=== PATIENT | female | born 1975 | race Caucasian/White ===

== ENCOUNTER 2017-08-16 08:46 | Emergency (ER) | payer BC, MEDICAID ==
[2017-08-16 10:48] LABS: ABSOLUTE EOSINOPHILS # (AUTO) 0.1 10^3/uL (0.0-0.6); ABSOLUTE LYMPHOCYTES (AUTO) 2.1 10^3/uL (0.5-4.7); ABSOLUTE MONOCYTES (AUTO) 0.6 10^3/uL (0.1-1.4); ABSOLUTE NEUT (AUTO) 9.5 10^3/uL (1.7-8.2); BASOPHILS % (AUTO) 0.2 % (0-2); EOSINOPHILS % (AUTO) 0.8 % (0-6); HEMATOCRIT 32.2 % (36.0-47.0); LYMPHOCYTES % (AUTO) 17.3 % (13-45); MEAN CORPUSCULAR HEMOGLOBIN 32.4 pg (27.0-33.4); MEAN CORPUSCULAR VOLUME 95 fl (80-97); PLATELET COUNT 350 10^3/uL (150-450); RED BLOOD COUNT 3.38 10^6/uL (3.72-5.28); RED CELL DISTRIBUTION WIDTH 14.4 % (11.5-14.0); SEGMENTED NEUTROPHILS % (AUTO) 76.7 % (42-78); TOTAL CELLS COUNTED % (AUTO) 100 %; WHITE BLOOD COUNT 12.4 10^3/uL (4.0-10.5)
[2017-08-16 10:56] LABS: APPEARANCE,URINE SLIGHTLY-CLOUDY; BILIRUBIN,URINE NEGATIVE (NEGATIVE); CALCIUM OXALATE CRYSTALS,URINE MANY /HPF; COLOR,URINE YELLOW; GLUCOSE, URINE NEGATIVE (NEGATIVE); KETONES,URINE TRACE mg/dL (NEGATIVE); LEUKOCYTE ESTERASE,URINE NEGATIVE (NEGATIVE); NITRITE,URINE NEGATIVE (NEGATIVE); PROTEIN,URINE NEGATIVE (NEGATIVE); URINE SPECIFIC GRAVITY 1.024; UROBILINOGEN,URINE NEGATIVE mg/dL (<2.0)
[2017-08-16 11:10] LABS: ALANINE AMINOTRANSFERASE 22 U/L (9-52); ALBUMIN 3.6 g/dL (3.5-5.0); ALKALINE PHOSPHATASE 50 U/L (38-126); ANION GAP 10 (5-19); ASPARTATE AMINO TRANSFERASE 18 U/L (14-36); BILIRUBIN,DIRECT 0.2 mg/dL (0.0-0.4); BILIRUBIN,TOTAL 0.2 mg/dL (0.2-1.3); BLOOD UREA NITROGEN 9 mg/dL (7-20); CALCIUM 9.8 mg/dL (8.4-10.2); CARBON DIOXIDE 26 mmol/L (22-30); CHLORIDE 103 mmol/L (98-107); CREATINE KINASE 50 U/L (30-135); GLUCOSE 104 mg/dL (75-110); POTASSIUM 4.4 mmol/L (3.6-5.0); SODIUM 139.2 mmol/L (137-145); TOTAL PROTEIN 6.2 g/dL (6.3-8.2)
[2017-08-16] MEDS ORDERED: NORMAL SALINE 1000 ML 1,000 ML IV ONE (11:17)
[2017-08-16 11:21] LABS: CREATINE KINASE MB 0.41 ng/mL (<4.55)
[2017-08-16 11:23] LABS: TROPONIN I < 0.012 ng/mL
--- NOTE | 2017-08-16 13:05 | RADIOLOGY REPORT (SQ) ---
EXAM DESCRIPTION: CTA CHEST COMPLETED DATE/TIME: 08/16/2017 12:36 pm REASON FOR STUDY: sob/left arm pain, cp, COMPARISON: None. TECHNIQUE: CT scan of the chest performed using helical scanning technique with dynamic intravenous contrast injection. Images reviewed with lung, soft tissue and bone windows. Reconstructed coronal and sagittal MPR images reviewed. Additional 3 dimensional post-processing performed to develop Maximal Intensity Projection images (ME P). All images stored on PACS. All CT scanners at this facility use dose modulation, iterative reconstruction, and/or weight based d osing when appropriate to reduce radiation dose to as low as reasonably achievable (ALARA). [facility]: Dose Right [facility]: CareDose [facility]: Dose Right [facility]: Teradose 4D [facility]: [employer] CONTRAST TYPE AND DOSE: contrast/concentration: Isovue 370.00 mg/ml; Total Contrast Delivered: 157.0 ml; Total Saline Delivered: 136.9 ml Patient had to be reinjected due to IV malfunction. RENAL FUNCTION: GFR > 60. RADIATION DOSE: CT Rad equipment meets quality standard of care and radiation dose reduction techniq ues were employed. CTDIvol: 24.8 - 25.5 mGy. DLP: 880 mGy-cm. . LIMITATIONS: Timing of contrast. FINDINGS: LUNGS AND PLEURA: No masses, infiltrates, pneumothorax. No pleural effusions, calcificati ons. AORTA AND GREAT VESSELS: No aneurysm. No dissection. HEART: No pericardial effusion. No significant coronary artery calcifications. PULMONARY ARTERIES: No emboli visualized in the main pulmonary arteries or the segmental branches. HILAR AND MEDIASTINAL STRUCTURES: No identified masses or abnormal nodes. HARDWARE: None in the chest. UPPER ABDOMEN: No significant findings. Limited exam. THYROID AND OTHER SOFT TISSUES: No masses. No adenopathy. BONES: No acute or significant finding. 3D MIPS: Confirm above findings. OTHER: No other significant finding. IMPRESSION: NORMAL CTA OF THE CHEST. NO PULMONARY EMBOLI. COMMENT: Quality ID # [id number]: Final reports with documentation of one or more dose reduction techniques (e.g., Automated exposure control, adjustment of the mA and/or kV according to patient size, use of iterative reconstruction technique) TECHNICAL DOCUMENTATION: JOB ID: [id number] [employer]- All Rights Reserved Reading location - IP/workstation name: [facility]
--- NOTE | 2017-08-16 13:18 | ER Document Report ---
ED Extremity Problem, Upper - General Chief Complaint: Arm Problem Stated Complaint: ARM PAIN Time Seen by Provider: 08/16/17 09:47 Mode of Arrival: Ambulatory Information source: Patient Notes: Patient a 41-year-old female who is approximately 23 weeks with her fourth child and presents to the ER today for left arm pain that started last night in the middle of her sleep. Patient does state that she has carpal tunnel and that the pain is similar but that it has never traveled all the way up to the shoulder which is the case at this time. Patient denies any chest pain. Patient admits to shortness of breath that also began this morning with exertion. Patient states that she has not been having shortness of breath at all and that this is a new symptom. Patient also admits to nausea and vomiting yesterday and nausea this morning, stating that she has not been having that for many months either. She denies any history of blood clots, recent travel. She denies any cardiac history. TRAVEL OUTSIDE OF THE [place] IN LAST 30 DAYS: No - Related Data Allergies/Adverse Reactions: No Known Allergies Allergy (Verified 08/16/17 08:46) Past Medical History - General Information source: Patient - Social History Smoking Status: Never Smoker Chew tobacco use (# tins/day): No Frequency of alcohol use: None Drug Abuse: None Family History: Reviewed & Not Pertinent Patient has suicidal ideation: No Patient has homicidal ideation: No - Past Medical History Cardiac Medical History: Reports: Hx Hypertension Renal/ Medical History: Denies: Hx Peritoneal Dialysis Review of Systems - Review of Systems Constitutional: No symptoms reported EENT: No symptoms reported Cardiovascular: See HPI Respiratory: See HPI Gastrointestinal: See HPI Genitourinary: No symptoms reported Female Genitourinary: See HPI Musculoskeletal: No symptoms reported Skin: No symptoms reported Hematologic/Lymphatic: No symptoms reported Neurological/Psychological: No symptoms reported Physical Exam - Vital signs Vitals: Temp Pulse Resp BP Pulse Ox 97.8 F 83 16 130/66 H 97 08/16/17 08:50 08/16/17 08:50 08/16/17 08:50 08/16/17 08:50 08/16/17 08:50 - Notes Notes: PHYSICAL EXAMINATION: GENERAL: Anxious appearing, but in no acute distress. HEAD: Atraumatic, normocephalic. EYES: Pupils equal round and reactive to light, extraocular movements intact, sclera anicteric, conjunctiva are normal. ENT: ear canals without erythema or foreign body, TMs pearly ferrer with good bony landmarks, nares patent, oropharynx clear without exudates. Moist mucous membranes. NECK: Normal range of motion, supple without lymphadenopathy LUNGS: CTAB and equal. No wheezes rales or rhonchi. HEART: Regular rate and rhythm without murmurs ABDOMEN: Soft, no tenderness. No guarding, no rebound BACK: no vertebral tenderness, normal ROM GI/: no CVA tenderness EXTREMITIES: Normal range of motion, no pitting edema. No cyanosis. NEUROLOGICAL: Cranial nerves grossly intact. Normal sensory/motor exams. PSYCH: Normal mood, normal affect. SKIN: Warm, Dry, normal turgor, no rashes or lesions noted Course - Re-evaluation Re-evalutation: 08/16/17 19:00 Lab work is unremarkable today including normal cardiac enzymes, EKG reveals a normal sinus rhythm without evidence of ischemia or abnormality, CTA was performed due to patient's complaint of acute shortness of breath and was negative for any pulmonary emboli or other abnormality. 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 Vitals have been all within normal limits and patient stable for discharge. - Vital Signs Vital signs: Temp Pulse Resp BP Pulse Ox 97.9 F 77 16 112/65 98 08/16/17 13:47 08/16/17 13:47 08/16/17 13:47 08/16/17 13:47 08/16/17 13:47 - Laboratory Result Diagrams: 08/16/17 10:29 08/16/17 10:29 Laboratory results interpreted by me: 08/16/17 08/16/17 08/16/17 10:29 10:29 10:29 WBC 12.4 H RBC 3.38 L Hgb 11.0 L Hct 32.2 L RDW 14.4 H Absolute Neutrophils 9.5 H Total Protein 6.2 L Urine Ketones TRACE H Urine Ascorbic Acid 40 H Discharge - Discharge Clinical Impression: related nausea and vomiting, antepartum, SOB (shortness of breath), Left arm pain Condition: Stable Disposition: HOME, SELF-CARE Additional Instructions: Return immediately for any new or worsening symptoms. Follow up with primary care provider, call tomorrow to make followup appointment. Prescriptions: Metoclopramide HCl [Reglan 10 mg Tablet] 1 tab PO Q8 PRN #25 tablet PRN Reason:
[2017-08-16] MEDS ORDERED: METOCLOPRAMIDE HCL INJ/PF 10 MG/2 ML SDV IV ONE (13:19)
[2017-08-16 13:51] VITALS: BP 112/65
--- NOTE | 2017-08-16 17:59 | EKG REPORT ---
SEVERITY:- NORMAL ECG - SINUS RHYTHM : Confirmed by: Yoshi Ivey MD 16-Aug-2017 17:59:16
== END 2017-08-16 13:47 | disposition home or self-care (01) ==
LOC: ER 08:46
DX: O21.9 Vomiting of pregnancy, unspecified (principal); O26.892 Other specified pregnancy related conditions, second trimester; M79.602 Pain in left arm; R06.02 Shortness of breath; Z3A.23 23 weeks gestation of pregnancy
CPT/HCPCS: 93005; 99284; 96360; 36415; 82553; 82550; 85025; 80053; 81001; 84484; 71275; 93010; J7030

== ENCOUNTER → 2017-12-11 | Outpatient (CLI) | payer BC, MEDICAID ==
[~2017-12-11] MED LIST: LIDOCAINE 1% INJ-PF (10 MG/ML) 30 ML SDV ONE; MISOPROSTOL 0.2 MG TABLET ONE; OXYTOCIN/NORMAL SALINE 20 UNIT/1,000 ML RTUINJ IV PRN; OXYTOCIN/NORMAL SALINE 20 UNIT/1,000 ML RTUINJ ONE; RINGERS SOLUTION,LACTATED 1,000 ML IV PRN; RINGERS SOLUTION,LACTATED 300 ML IV ONE
[2017-12-11 08:01] LABS: ABSOLUTE EOSINOPHILS # (AUTO) 0.1 10^3/uL (0.0-0.6); ABSOLUTE LYMPHOCYTES (AUTO) 1.9 10^3/uL (0.5-4.7); ABSOLUTE MONOCYTES (AUTO) 0.6 10^3/uL (0.1-1.4); ABSOLUTE NEUT (AUTO) 5.2 10^3/uL (1.7-8.2); BASOPHILS % (AUTO) 0.3 % (0-2); EOSINOPHILS % (AUTO) 1.4 % (0-6); HEMOGLOBIN 12.2 g/dL (12.0-15.5); LYMPHOCYTES % (AUTO) 24.5 % (13-45); MEAN CORPUSCULAR HGB CONC 34.9 g/dL (32.0-36.0); MEAN CORPUSCULAR VOLUME 95 fl (80-97); MONOCYTES % (AUTO) 7.8 % (3-13); PLATELET COUNT 310 10^3/uL (150-450); RED CELL DISTRIBUTION WIDTH 14.4 % (11.5-14.0); TOTAL CELLS COUNTED % (AUTO) 100 %; WHITE BLOOD COUNT 7.9 10^3/uL (4.0-10.5)
[2017-12-11 08:03] LABS: APPEARANCE,URINE CLEAR; BILIRUBIN,URINE NEGATIVE (NEGATIVE); COLOR,URINE YELLOW; GLUCOSE, URINE NEGATIVE (NEGATIVE); KETONES,URINE NEGATIVE (NEGATIVE); LEUKOCYTE ESTERASE,URINE NEGATIVE (NEGATIVE); NITRITE,URINE NEGATIVE (NEGATIVE); PROTEIN,URINE NEGATIVE (NEGATIVE); URINE SPECIFIC GRAVITY 1.019; UROBILINOGEN,URINE NEGATIVE mg/dL (<2.0)
[2017-12-11 08:04] LABS: ALANINE AMINOTRANSFERASE 29 U/L (9-52); ALBUMIN 3.6 g/dL (3.5-5.0); ALKALINE PHOSPHATASE 79 U/L (38-126); ANION GAP 11 (5-19); ASPARTATE AMINO TRANSFERASE 32 U/L (14-36); BILIRUBIN,DIRECT 0.2 mg/dL (0.0-0.4); BILIRUBIN,TOTAL 0.5 mg/dL (0.2-1.3); BLOOD UREA NITROGEN 10 mg/dL (7-20); CARBON DIOXIDE 23 mmol/L (22-30); CHLORIDE 107 mmol/L (98-107); GLUCOSE 94 mg/dL (75-110); POTASSIUM 4.1 mmol/L (3.6-5.0); TOTAL PROTEIN 6.5 g/dL (6.3-8.2)
[2017-12-11 08:16] LABS: URINE AMPHETAMINES SCREEN NEGATIVE; URINE BARBITURATES SCREEN NEGATIVE; URINE BENZODIAZEPINES SCREEN NEGATIVE; URINE COCAINE SCREEN NEGATIVE; URINE MARIJUANA (THC) SCREEN NEGATIVE; URINE METHADONE SCREEN NEGATIVE; URINE PHENCYCLIDINE SCREEN NEGATIVE
[2017-12-11 08:24] LABS: UR PRO/CREAT RATIO RESULT 0.1 mg/mg (0.0-0.2); URINE CREATININE 171.6 mg/dL (15-278); URINE PROTEIN 9.1 mg/dL (<12)
--- NOTE | 2017-12-11 13:52 | Non Stress Test Report ---
Non Stress Test Datetime Report Generated by CPN: 12/11/2017 13:51 DEMOGRAPHIC EGA NST: 39.4 INDICATION Indication for Study: Other Indication for Study (NST) Other: scheduled induction of labor VITAL SIGNS Temperature - NST: 99.3 Pulse - NST: 90 RESP - NST: 18 NBPSYS NST: 124 NBPDIA NST: 77 MONITORING Monitor Explained: Monitor Explained; Test Explained; Patient Verbalized Understanding Time on Monitor: 12/11/2017 12:44 Time off Monitor: 12/11/2017 13:04 NST Duration: 20 NST INTERVENTIONS NST Interventions: PO Hydration Physician Notified NST: A. Scott, CNM BABY A: [id number] BABY A Movement : Present Contraction Frequency : 1.5-3 FHR Baseline : 135 Accelerations : 15X15 Decelerations : None Variability : Moderate 6-25bpm NST Review: Meets Criteria for Reactive NST NST Review and Verified By : JASON Melton Results: Reactive NST REPORT Report Trigger: Send Report
--- NOTE | 2017-12-11 14:02 | PDOC PROGRESS REPORT ---
Subjective Progress Note for:: 12/11/17 Reason For Visit: INDUCTION OF LABOR Physical Exam - Physical Exam Vital Signs: Intake & Output 12/10/17 12/11/17 12/12/17 06:59 06:59 06:59 Weight 114.4 kg General appearance: PRESENT: no acute distress - cx Psychiatric exam: PRESENT: normal mood - Gynecological Exam Labia: normal Urethra: normal Introitus: normal Perineum: normal Vagina: normal - Obstetrical Exam Station: -3 Tender: No Result Laboratory Results: 12/11/17 07:23 12/11/17 07:23 12/11/17 12/11/17 12/11/17 07:10 07:23 07:23 WBC 7.9 RBC 3.70 L Hgb 12.2 Hct 35.0 L MCV 95 MCH 33.0 MCHC 34.9 RDW 14.4 H Plt Count 310 Seg Neutrophils % 66.0 Lymphocytes % 24.5 Monocytes % 7.8 Eosinophils % 1.4 Basophils % 0.3 Absolute Neutrophils 5.2 Absolute Lymphocytes 1.9 Absolute Monocytes 0.6 Absolute Eosinophils 0.1 Absolute Basophils 0.0 Sodium 141.0 Potassium 4.1 Chloride 107 Carbon Dioxide 23 Anion Gap 11 BUN 10 Creatinine 0.65 Est GFR ( Amer) > 60 Est GFR (Non-Af Amer) > 60 Glucose 94 Uric Acid 6.0 Calcium 9.0 Total Bilirubin 0.5 AST 32 ALT 29 Alkaline Phosphatase 79 Total Protein 6.5 Albumin 3.6 Urine Color YELLOW Urine Appearance CLEAR Urine pH 6.0 Ur Specific Bradley 1.019 Urine Protein NEGATIVE Urine Glucose (UA) NEGATIVE Urine Ketones NEGATIVE Urine Blood NEGATIVE Urine Nitrite NEGATIVE Ur Leukocyte Esterase NEGATIVE Urine WBC (Auto) 1 Blood Type Antibody Screen 12/11/17 07:23 WBC RBC Hgb Hct MCV MCH MCHC RDW Plt Count Seg Neutrophils % Lymphocytes % Monocytes % Eosinophils % Basophils % Absolute Neutrophils Absolute Lymphocytes Absolute Monocytes Absolute Eosinophils Absolute Basophils Sodium Potassium Chloride Carbon Dioxide Anion Gap BUN Creatinine Est GFR ( Amer) Est GFR (Non-Af Amer) Glucose Uric Acid Calcium Total Bilirubin AST ALT Alkaline Phosphatase Total Protein Albumin Urine Color Urine Appearance Urine pH Ur Specific Bradley Urine Protein Urine Glucose (UA) Urine Ketones Urine Blood Urine Nitrite Ur Leukocyte Esterase Urine WBC (Auto) Blood Type A NEGATIVE Antibody Screen NEGATIVE Assessment & Plan - Diagnosis (1) Gestational diabetes Qualifiers: Gestational diabetes mellitus control: oral hypoglycemic-controlled Is this a current diagnosis for this admission?: Yes - Plan Summary Plan Summary: after discussion and chart review with dr childs, pt given option of going home and follow up on thursday in office. pt opts for going home,
== END ==
LOC: UNDOADMIN 06:46 → LR 06:46 → LC 06:48 → UNDODISIN 13:35 → EDSTATUS 12-18 16:14
PROVIDERS: ATTEND Student in an Organized Health Care Education/Training Program
PROC: 4A1HXCZ Monitoring of Products of Conception, Cardiac Rate, External Approach (ICD-10-PCS; principal; 2017-12-11)
DX: O24.913 Unspecified diabetes mellitus in pregnancy, third trimester (principal); Z3A.39 39 weeks gestation of pregnancy; Z79.899 Other long term (current) drug therapy
CPT/HCPCS: 59025; 86900; 86901; 36415; 86850; 83615; 84156; 84550; 82570; 85025; 86592; 80053; 81001; 80307; J3490; J2590

== ENCOUNTER 2017-12-25 15:18 | Inpatient (IN) | payer BC, MEDICAID ==
[2017-12-25] MEDS ORDERED: DINOPROSTONE 10 MG VAGINAL INSERT.SR PV PRN (15:35)
[2017-12-25] MEDS ORDERED: OXYTOCIN/NORMAL SALINE 20 UNIT/1,000 ML RTUINJ IV PRN (15:35)
[2017-12-25] MEDS ORDERED: RINGERS SOLUTION,LACTATED 300 ML IV ONE (15:35)
[2017-12-25] MEDS ORDERED: RINGERS SOLUTION,LACTATED 1,000 ML IV PRN ×2 (15:35)
[2017-12-25 16:45] LABS: HEMATOCRIT 34.6 % (36.0-47.0); HEMOGLOBIN 11.9 g/dL (12.0-15.5); MEAN CORPUSCULAR HEMOGLOBIN 32.4 pg (27.0-33.4); MEAN CORPUSCULAR HGB CONC 34.3 g/dL (32.0-36.0); MEAN CORPUSCULAR VOLUME 95 fl (80-97); PLATELET COUNT 291 10^3/uL (150-450); RED BLOOD COUNT 3.66 10^6/uL (3.72-5.28); RED CELL DISTRIBUTION WIDTH 14.5 % (11.5-14.0); WHITE BLOOD COUNT 9.5 10^3/uL (4.0-10.5)
[2017-12-25] MEDS ORDERED: OXYTOCIN/NORMAL SALINE 20 UNIT/1,000 ML RTUINJ ONE (17:09)
[2017-12-25 17:30] LABS: URINE AMPHETAMINES SCREEN NEGATIVE; URINE BARBITURATES SCREEN NEGATIVE; URINE BENZODIAZEPINES SCREEN NEGATIVE; URINE COCAINE SCREEN NEGATIVE; URINE MARIJUANA (THC) SCREEN NEGATIVE; URINE METHADONE SCREEN NEGATIVE; URINE PHENCYCLIDINE SCREEN NEGATIVE
--- NOTE | 2017-12-25 18:35 | Admission Physical ---
Datetime Report Generated by CPN: 12/25/2017 18:34 CURRENT ADMISSION Hx Assessment: The History has been Reviewed and is Current Chief Complaint: Scheduled Induction of Labor Indication for Induction: Postterm Admit Impression : Postterm, Intrauterine Admit Plan: Admit to Unit; Initiate Labor Induction Protocol ALLERGIES Medication Allergies: No Medication Allergies: No Known Allergies (12/25/2017) Latex: No Latex Allergies Food Allergies: none Environmental Allergies: none OBSTETRICAL HISTORY EDC: 12/14/2017 00:00 : 4 Para: 3 Term: 3 : 0 SAB: 0 IAB: 0 Ectopic: 0 Livin Cesareans: 0 VBACs: 0 Multiple Births: 0 Gestational Diabetes: Yes Rh Sensitization: No Incompetent Cervix: No SHRUTHI: No Infertility: No ART Treatment: No Uterine Anomaly: No IUGR: No Hx Previous C/S: No Macrosomia: No Hx Loss/Stillborn: No PIH: Yes Hx : No Placenta Previa/Abruption: No Depression/PP Depression: No PTL/PROM: No Post Hemorrhage: No Current Procedures: Ultrasound; NST Obstetrical History Comments: G1 - 1993 42 wks 8 lbs 9 oz Female G2 - 1999 40 wks 6 lbs 3 oz Female PIH G3 - 2002 40+ wks 8 lbs 9 oz Female G4 - current, GDM on glyburide, AMA, HTN SEE RECORDS Alcohol: No Marijuana : No Cocaine: No Other Illicit Drugs: No Cigarettes: Never Smoker. 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 Surgery: No Heart Disease: No Hosp/Surgery: Yes Autoimmune Disorder: No Anesthetic Complications: No Kidney Disease: No Abnormal Pap Smear: No Neuro/Epilepsy: No Psychiatric Disorders: No Other Medical Diseases: No Hepatitis/Liver Disease: No Significant Family History: No Varicosities/Phlebitis: No Trauma/Violence : No Thyroid Dysfunction: No Medical History Comments: Druze, HTN, Obesity, Shingles (2017), Anterior Fibroid 6.8 cm, Rectocele, GDM, Anxiety, panic attack INFECTIOUS HISTORY Gonorrhea: No Genital Herpes: No Chlamydia: No Tuberculosis: No Syphilis: No Hepatitis: No HIV/AIDS Exposure: No Rash or Viral Illness: No HPV: No PHYSICAL EXAM General: Normal Neurologic: Normal Heart: Normal Lungs: Normal Abdomen: Normal Pelvic Type: Adequate Physical Exam Comments: pelvis proven to 8lbs 9oz last delivery 2003 Vital Signs: Reviewed Details Vital Signs: mild range bps-normal VAGINAL EXAM Dilatation: 2-3 Effacement: long Station: -3 Contraction Comments: irreg on admission MEMBRANES Membranes: Intact FETUS A EGA: 41.4 Monitoring: External US FHR- Baseline: 140 Variability: Moderate 6-25bpm Accelerations: 15X15 FHR Category: Category I Presentation: Vertex Admit Comment: 42yo into L_D for IOL at 41w4d. Pt. is A neg, rubella immune, GBS neg. complicated by obesity, GDM-A2 on glyburide and CHTN on labetalol. Will start pitocin induction at this time. Pt. is a Jehova's Witness and declines blood products if needed during this hospitalization. Understands this is a life saving procedure but still declines. PLANS FOR LABOR AND DELIVERY Labor and Delivery: None Pain Management: Medications Feeding Preference: Breast Benefit of Breast Feed Discussed: Yes Circumcision: N/A INFORMED CONSENT Assignment: Ivy Santiago MD Signature: with User ID: [email or web address] : with User ID: [email or web address]
[2017-12-26] MEDS ORDERED: LIDOCAINE 1% INJ-PF (10 MG/ML) 30 ML SDV ONE (00:54)
[2017-12-26] MEDS ORDERED: OXYTOCIN 10 UNIT/ML VIAL ONE (00:54)
[2017-12-26] MEDS ORDERED: MISOPROSTOL 0.2 MG TABLET ONE (00:54)
[2017-12-26] MEDS ORDERED: OXYTOCIN/NORMAL SALINE 20 UNIT/1,000 ML RTUINJ ONE (00:55)
[2017-12-26] MEDS ORDERED: FENTANYL CITRATE INJ/PF 100 MCG/2 ML AMPUL ONE ×2 (02:00→04:32)
[2017-12-26] MEDS ORDERED: FENTANYL CITRATE INJ/PF 100 MCG/2 ML AMPUL IV ONE (02:20)
[2017-12-26] MEDS ORDERED: NALOXONE HCL INJ/PF 0.4 MG/1 ML SDV ONE (02:33)
[2017-12-26] MEDS ORDERED: ONDANSETRON HCL INJ/PF 4 MG/2 ML SDV ONE (04:04)
[2017-12-26] MEDS ORDERED: ONDANSETRON HCL INJ/PF 4 MG/2 ML SDV IV ONE (04:10)
[2017-12-26] MEDS ORDERED: DIPHENHYDRAMINE HCL 50 MG/ML VIAL ONE (04:56)
[2017-12-26] MEDS ORDERED: ACETAMINOPHEN WITH CODEINE #3 TABLET ONE (05:46)
[2017-12-26] MEDS ORDERED: IBUPROFEN 800 MG TABLET ONE (05:46)
[2017-12-26] MEDS ORDERED: PROMETHAZINE HCL 25 MG SUPP.RECT PR PRN (05:50)
[2017-12-26] MEDS ORDERED: MEASLES,MUMPS&RUBELLA VACC/PF 0.5 ML VIAL SUBCUT PRN (05:50)
[2017-12-26] MEDS ORDERED: DIPH/PERTUSS(ACELL)/TETANUS VAC/PF 0.5 ML SYR (>=10YO) IM PRN (05:50)
[2017-12-26] MEDS ORDERED: BENZOCAINE/MENTHOL AEROSOL SPRAY 56 ML TOP PRN (05:50)
[2017-12-26] MEDS ORDERED: MAGNESIUM HYDROXIDE SUSP 30 ML UDCUP PO PRN (05:50)
[2017-12-26] MEDS ORDERED: OXYTOCIN/NORMAL SALINE 20 UNIT/1,000 ML RTUINJ IV PRN (05:50)
[2017-12-26] MEDS ORDERED: ACETAMINOPHEN WITH CODEINE #3 TABLET PO PRN ×2 (05:50)
[2017-12-26] MEDS ORDERED: ZOLPIDEM TARTRATE 5 MG TABLET PO PRN (05:50)
[2017-12-26] MEDS ORDERED: NA PHOS,M-B/NA PHOS,DI-BA (ADULT) 133 ML ENEMA PR PRN (05:50)
[2017-12-26] MEDS ORDERED: DIBUCAINE 1% OINTMENT 28 GM TP PRN (05:50)
[2017-12-26] MEDS ORDERED: PROMETHAZINE HCL 25 MG TABLET PO PRN (05:50)
[2017-12-26] MEDS ORDERED: DIPHENHYDRAMINE HCL 25 MG CAPSULE PO PRN (05:50)
[2017-12-26] MEDS ORDERED: GLYCERIN/WITCH HAZEL LEAF 1 EACH MED..PAD TP PRN (05:50)
[2017-12-26] MEDS ORDERED: ACETAMINOPHEN 650 MG SUPP.RECT PR PRN (05:50)
[2017-12-26] MEDS ORDERED: PROMETHAZINE HCL INJ 25 MG/1 ML VIAL IV PRN (05:50)
[2017-12-26] MEDS ORDERED: PSEUDOEPHEDRINE HCL 30 MG TABLET PO PRN (05:50)
--- NOTE | 2017-12-26 06:34 | Warning Signs in Babies ---
VOD Warning Signs Datetime Report Generated by [facility]: 12/26/2017 06:34 VOD#608 -Warning Signs in Babies: Needs to be viewed. (12/11/2017 04:22:Lana Fernando RN)
--- NOTE | 2017-12-26 07:21 | Delivery Summary ---
Del Sum A-C Datetime Report Generated by CPN: 12/26/2017 07:21 DELIVERY PERSONNEL DELIVERY PERSONNEL: [id number] Delivery Doctor:: Ivy Santiago MD Labor and Delivery Nurse:: Lana Fernando RNbolt cutter Nurse:: Ayse Ratliff RN Nursery Nurse:: Carine Meehan RN Nursery Nurse:: Deann Haywood RN Counter Weigher/FORENSIC PATHOLOGIST: Lori Semar, DRAG SEINER MATERNAL INFORMATION Delivery Anesthesia: None Medications After Delivery: Pitocin Drip 20 Units/1000ml NSS Estimated Blood Loss (ml): 250 Maternal Complications: Other Complication Details: GDMA2 on glyburide, AMA, CHTN on labetalol Provider Comments: suprapubic and mcrobert's maneuvers performed and delivery occured without incidence afterwards. True knot and nuchal cord noted. LABOR SUMMARY EDC: 12/14/2017 00:00 No. Babies in Womb: 1 Attempted: No Labor Anesthesia: IV Sedation LABOR INFORMATION Reason for Induction: Postterm; Chronic Primary/Essential HTN; Maternal Diabetes Onset of Labor: 12/26/2017 01:35 Complete Dilatation: 12/26/2017 05:20 Oxytocin: Induction Group B Beta Strep: 1 NO GROUP B STREPTOCOCCUS RECOVERED Antibiotics # of Doses: 0 Antibiotics Time of Last Dose: n/a Name of Antibiotic Given: n/a Steroids Given: None Reason Steroids Not Administered: Not Applicable MEMBRANES Membranes Rupture Method: Spontaneous Rupture of Membranes: 12/26/2017 02:37 Length of Rupture (hr): 2.85 Amniotic Fluid Color: Clear Amniotic Fluid Amount: Moderate Amniotic Fluid Odor: Normal STAGES OF LABOR Stage 1 hr: 3 Stage 1 min: 45 Stage 2 hr: 0 Stage 2 min: 8 Stage 3 hr: 0 Stage 3 min: 4 Total Time in Labor hr: 3 Total Time in Labor min: 57 VAGINAL DELIVERY Episiotomy: None Laceration #1: None Laceration Extension #1: N/A Laceration Repair: Not Applicable Sponge Count Correct: Yes Sharps Count Correct: Yes CSECTION DELIVERY Primary Indication: N/A Secondary Indication: N/A CSection Incidence: N/A CSection Incision: N/A BABY A INFORMATION Delivery Date/Time: 12/26/2017 05:28 Method of Delivery: Vaginal Born in Route : No : N/A Forceps: N/A Vacuum Extraction: N/A Shoulder Dystocia : No PRESENTATION/POSITION BABY A Presentation: Cephalic Cephalic Presentation: Vertex Vertex Position: Left Occipital Anterior Breech Presentation: N/A PLACENTA INFORMATION BABY A Placenta Delivery Time : 12/26/2017 05:32 Placenta Method of Delivery: Spontaneous Placenta Status: Delivered SCORES BABY A Heart Rate 1 min: >100 bpm Resp Effort 1 min: Good Cry Reflex Irritability 1 min: Cough or Sneeze or Pulls Away Muscle Tone 1 min: Active Motion Color 1 min: Blue/Pale Resuscitation Effort 1 min: Tactile Stimulation SCORE 1 MIN: 8 Heart Rate 5 min: >100 bpm Resp Effort 5 min: Good Cry Reflex Irritability 5 min: Cough or Sneeze or Pulls Away Muscle Tone 5 min: Active Motion Color 5 min: Body [place], Extremities Blue Resuscitation Effort 5 min: Tactile Stimulation SCORE 5 MIN: 9 INFORMATION BABY A Gestational Age at Delivery: 41.5 Gestational Status: Late Term- 41- 41.6 Weeks Infant Outcome : Liveborn Condition : Stable Sex: Female IDENTIFICATION BABY A Verification Date/Time: 12/26/2017 06:25 ID Band Number: [id number] Mother's Name Verified: Yes RN Verifying Infant: rn jose Additional Verifying Personnel: gavi fernando WEIGHT/LENGTH BABY A Birthweight (gm): 4110 Infant Weight (lb): 9 Weight (oz): 1 Infant Length (in): 20.50 Length (cm): 52.07 CORD INFORMATION BABY A No. Cord Vessels: 3 Nuchal Cord : N/A True Knot: 1 Cord Blood Taken: Yes-For Eval (Mom's Blood Type - or O+) Infant Suction: Mouth; Nose ASSESSMENT BABY A Complications: Multiple Variable Decels; Other Complications- Other: suprapubic pressure used to assist in right shoulder delivering Physical Findings at Delivery: Puncture Wound from Scalp Electrode; Other Physical Findings- Other: small casper on right hand where infant had suckled in the womb Infant Respirations: Appears Normal Skin to Skin: Yes Cocktail Server/ALS Called : No Transferred To: Remains with Mother BABY B INFORMATION : N/A SIGNATURES Signature: with User ID: [email or web address]
[2017-12-26] MEDS ORDERED: GLYBURIDE PO SCH (10:00)
[2017-12-26] MEDS ORDERED: METFORMIN HCL PO SCH (10:00)
[2017-12-26] MEDS ORDERED: [UNRECOGNIZED DRUG - OTHER] PO SCH (10:00)
[2017-12-26] MEDS ORDERED: LABETALOL PO SCH (10:00)
[2017-12-26] MEDS: IBUPROFEN 800 MG TABLET PO SCH ×3 (10:19→22:12)
[2017-12-26] MEDS ORDERED: GLYBURIDE 2.5 MG TABLET PO SCH (10:45)
[2017-12-26] MEDS ORDERED: LABETALOL HCL 200 MG TABLET PO SCH (10:45)
[2017-12-26] MEDS: LABETALOL HCL 200 MG TABLET PO SCH (10:53)
[2017-12-26] MEDS: SENNOSIDES/DOCUSATE 8.6-50 MG 1 EACH TABLET PO SCH (10:56)
[2017-12-26] MEDS: DOCUSATE SODIUM 100 MG CAPSULE PO SCH ×2 (10:56→18:19)
[2017-12-26] MEDS: CALCIUM CARBONATE 500 MG TABLET PO SCH (10:56)
[2017-12-26] MEDS: LORATADINE 10 MG TABLET PO SCH (10:56)
[2017-12-26] MEDS: ASCORBIC ACID 500 MG TABLET PO SCH (10:56)
[2017-12-26] MEDS: PRENATAL VITAMIN W DHA CAPSULE PO SCH (10:56)
[2017-12-26] MEDS: FERROUS SULFATE 325 MG TABLET PO SCH ×2 (10:56→18:19)
[2017-12-26] MEDS: FAMOTIDINE 20 MG TABLET PO SCH ×2 (10:56→22:11)
[2017-12-26] MEDS ORDERED: METFORMIN HCL 500 MG TABLET PO SCH (11:00)
[2017-12-27] MEDS: IBUPROFEN 800 MG TABLET PO SCH ×3 (06:19→21:34)
[2017-12-27 08:49] LABS: HEMOGLOBIN 11.1 g/dL (12.0-15.5); MEAN CORPUSCULAR HGB CONC 34.7 g/dL (32.0-36.0); MEAN CORPUSCULAR VOLUME 95 fl (80-97); PLATELET COUNT 266 10^3/uL (150-450); RED BLOOD COUNT 3.36 10^6/uL (3.72-5.28); RED CELL DISTRIBUTION WIDTH 14.5 % (11.5-14.0); WHITE BLOOD COUNT 16.1 10^3/uL (4.0-10.5)
[2017-12-27] MEDS: LABETALOL HCL 200 MG TABLET PO SCH (10:27)
[2017-12-27] MEDS: LORATADINE 10 MG TABLET PO SCH (10:28)
[2017-12-27] MEDS: ASCORBIC ACID 500 MG TABLET PO SCH (10:28)
[2017-12-27] MEDS: FAMOTIDINE 20 MG TABLET PO SCH ×2 (10:28→21:33)
[2017-12-27] MEDS: FERROUS SULFATE 325 MG TABLET PO SCH ×2 (10:28→18:40)
[2017-12-27] MEDS: DOCUSATE SODIUM 100 MG CAPSULE PO SCH ×2 (10:29→18:40)
[2017-12-27] MEDS: CALCIUM CARBONATE 500 MG TABLET PO SCH (10:29)
[2017-12-27] MEDS: SENNOSIDES/DOCUSATE 8.6-50 MG 1 EACH TABLET PO SCH (10:29)
[2017-12-27] MEDS: PRENATAL VITAMIN W DHA CAPSULE PO SCH (10:29)
--- NOTE | 2017-12-27 10:48 | PDOC PROGRESS REPORT ---
Subjective-OB Progress Note for:: 12/27/17 Subjective: pt doing well, no concerns. She reports light bleeding, reg diet and voiding without difficulty. Pt refused Labetalol yesterday, BPs wnl per RN, will discontinue. Physical Exam (OB) Vital Signs: Temp Pulse Resp BP Pulse Ox 97.9 F 65 16 107/67 97 12/27/17 08:19 12/27/17 08:19 12/27/17 08:19 12/27/17 08:19 12/27/17 08:19 Intake & Output 12/26/17 12/27/17 12/28/17 06:59 06:59 06:59 Intake Total 293 900 Balance 293 900 Weight 114.3 kg - PIH/Pre-Eclampsia DTR's: 2 + Clonus: Negative Headache: Absent Epigastric Pain: No Visual Changes: No - Lochia Lochia Amount: Scant < 10 ml Lochia Color: Rubra/Red - Abdomen Description: Soft Hernia Present: No Fundal Description: Firm, Midline Fundal Height: 1/u - 2/u Objective-Diagnostic Laboratory: 12/27/17 07:38 12/27/17 07:38 WBC 16.1 H RBC 3.36 L Hgb 11.1 L Hct 32.0 L MCV 95 MCH 33.0 MCHC 34.7 RDW 14.5 H Plt Count 266 Assessment and Plan(PN) - Assessment and Plan (1) Vaginal delivery Is this a current diagnosis for this admission?: Yes (2) Gestational hypertension Qualifiers: Trimester: unspecified trimester Qualified Code(s): O13.9 - Gestational [ -induced] hypertension without significant proteinuria, unspecified trimester Is this a current diagnosis for this admission?: Yes (3) Gestational diabetes Qualifiers: Gestational diabetes mellitus control: unspecified Trimester: unspecified trimester Qualified Code(s): O24.419 - Gestational diabetes mellitus in , unspecified control Is this a current diagnosis for this admission?: Yes - Time Spent with Patient Time with patient: Less than 15 minutes Medications reviewed and adjusted accordingly: Yes - Disposition Anticipated Discharge: Home Within: within 24 hours
[2017-12-28] MEDS: IBUPROFEN 800 MG TABLET PO SCH ×2 (05:29→13:21)
[2017-12-28] MEDS: LORATADINE 10 MG TABLET PO SCH (09:27)
[2017-12-28] MEDS: FAMOTIDINE 20 MG TABLET PO SCH (09:27)
[2017-12-28] MEDS: SENNOSIDES/DOCUSATE 8.6-50 MG 1 EACH TABLET PO SCH (09:27)
[2017-12-28] MEDS: DOCUSATE SODIUM 100 MG CAPSULE PO SCH (09:27)
[2017-12-28] MEDS: PRENATAL VITAMIN W DHA CAPSULE PO SCH (09:27)
[2017-12-28] MEDS: FERROUS SULFATE 325 MG TABLET PO SCH (09:27)
[2017-12-28] MEDS: CALCIUM CARBONATE 500 MG TABLET PO SCH (09:28)
[2017-12-28] MEDS: ASCORBIC ACID 500 MG TABLET PO SCH (09:28)
--- NOTE | 2017-12-28 12:43 | PDOC PROGRESS REPORT ---
Subjective-OB Progress Note for:: 12/28/17 Subjective: PP Day #2, doing well, breast feeding, O+, Rubella + Physical Exam (OB) Vital Signs: Temp Pulse Resp BP Pulse Ox 98.1 F 66 18 118/69 97 12/28/17 08:17 12/28/17 08:17 12/28/17 08:17 12/28/17 08:17 12/28/17 08:17 Intake & Output 12/27/17 12/28/17 12/29/17 06:59 06:59 06:59 Intake Total 900 650 Balance 900 650 - General General Appearance: Appears well, Alert In distress: None - PIH/Pre-Eclampsia DTR's: 2 + Clonus: Negative Headache: Absent Epigastric Pain: No Visual Changes: No - Dressing Removed: No - Bilateral Tubal Ligation Dressing Removed: No - Lochia Lochia Amount: Scant < 10 ml Lochia Color: Rubra/Red - Abdomen Description: Soft Hernia Present: No Fundal Description: Firm Fundal Height: u/u - u/2 - Respiratory Respiratory Status: No respiratory distress - Genitourinary Genitourinary Note: voiding - Extremities Upper extremity: Normal inspection Lower extremities: Normal inspection - Neurological Cognition: Normal Orientation: AAOx4, Alert - Psychological Associated symptoms: Normal affect, Normal mood Objective-Diagnostic Laboratory: 12/27/17 07:38 Assessment and Plan(PN) - Assessment and Plan (1) Gestational hypertension Qualifiers: Trimester: third trimester Qualified Code(s): O13.3 - Gestational [ -induced] hypertension without significant proteinuria, third trimester Is this a current diagnosis for this admission?: Yes (2) Vaginal delivery Is this a current diagnosis for this admission?: Yes (3) Gestational diabetes Qualifiers: Gestational diabetes mellitus control: unspecified Trimester: unspecified trimester Qualified Code(s): O24.419 - Gestational diabetes mellitus in , unspecified control Is this a current diagnosis for this admission?: Yes - Time Spent with Patient Time with patient: Less than 15 minutes - in stable condition Medications reviewed and adjusted accordingly: Yes - Disposition Anticipated Discharge: Home
--- NOTE | 2017-12-28 12:50 | PDOC DISCHARGE SUMMARY ---
Final Diagnosis Discharge Date: 12/28/17 - Final Diagnosis (1) Gestational hypertension Is this a current diagnosis for this admission?: Yes (2) Vaginal delivery Is this a current diagnosis for this admission?: Yes (3) Gestational diabetes Is this a current diagnosis for this admission?: Yes Discharge Data - Discharge Medication Home Medications: Ascorbic Acid [Vitamin C] 1 tab PO DAILY 12/11/17 Glyburide/Metformin HCl [Glyburide-Metformin 2.5-500 mg] 1 tab PO DAILY Labetalol in Dextrose 5 % [Labetalol 200 mg/200 ml-D5w] 1 tab PO BID 12/11/17 Calcium Carbonate [Calcium] 1 tab PO DAILY 12/25/17 Labetalol HCl [Normodyne 200 mg Tablet] 200 mg PO BID tablet 12/28/17 Reason(s) for Admission: Induction of Labor Procedures: NST, Ultrasound Intrapartum Procedure(s): Spontaneous Vaginal Delivery - Diagnosis Test Laboratory: Temp Pulse Resp BP Pulse Ox 98.1 F 66 18 118/69 97 12/28/17 08:17 12/28/17 08:17 12/28/17 08:17 12/28/17 08:17 12/28/17 08:17 12/25/17 12/25/17 12/27/17 15:25 16:30 07:38 RBC 3.66 L 3.36 L Hgb 11.9 L 11.1 L Hct 34.6 L 32.0 L Urine Opiates Screen NEGATIVE - Discharge information/Instructions Discharge Activity: Activity As Tolerated, No Lifting Over 10 Pounds, Pelvic Rest Discharge Diet: As Tolerated, Regular Disposition: HOME, SELF-CARE Follow up with: [facility] in: 1, Weeks - for a BP check
[2017-12-28 13:00] VITALS: BP 118/69
== END 2017-12-28 14:52 | disposition home or self-care (01) | DRG 774 ==
LOC: LR 15:18 → 2S 12-26 08:25
PROVIDERS: ADMIT Obstetrics & Gynecology; ATTEND Obstetrics & Gynecology
PROC: 10E0XZZ Delivery of Products of Conception, External Approach (ICD-10-PCS; principal; 2017-12-26)
PROC: 4A1HXCZ Monitoring of Products of Conception, Cardiac Rate, External Approach (ICD-10-PCS; 2017-12-26)
DX: O48.0 Post-term pregnancy (principal); O10.02 Pre-existing essential hypertension complicating childbirth; O24.425 Gestational diabetes mellitus in childbirth, controlled by oral hypoglycemic drugs; O76 Abnormality in fetal heart rate and rhythm complicating labor and delivery; O99.214 Obesity complicating childbirth; E66.9 Obesity, unspecified; O69.2XX0 Labor and delivery complicated by other cord entanglement, with compression, not applicable or unspecified; O99.824 Streptococcus B carrier state complicating childbirth; Z3A.41 41 weeks gestation of pregnancy; Z37.0 Single live birth
CPT/HCPCS: 36415; 59025; 80307; 85027; 86592; 86850; 86900; 86901; 94760; J1200; J2310; J2405; J2590; J3010; J3490

== ENCOUNTER 2019-05-25 11:09 | Emergency (ER) | payer BC, MEDICAID ==
[2019-05-25] MEDS ORDERED: METHYLPREDNISOLONE INJ 125 MG/2 ML SDV IV ONE (11:20)
[2019-05-25] MEDS ORDERED: FAMOTIDINE INJ/PF 20 MG/2 ML SDV IV ONE (11:20)
[2019-05-25] MEDS ORDERED: DIPHENHYDRAMINE HCL 50 MG/ML VIAL IV ONE (11:20)
--- NOTE | 2019-05-25 11:20 | ER Document Report ---
ED Medical Screen (RME) - General Chief Complaint: Allergic Reaction Stated Complaint: POSSIBLE ALLERGIC REACTION Time Seen by Provider: 05/25/19 11:17 Primary Care Provider: CHELE MATA CNM [Primary Care Provider] - Follow up as needed Mode of Arrival: Wheelchair Information source: Patient Notes: 43-year-old female presented to ED for complaint of allergic reaction to onions. She states the unusual in something she ate and she did not realize it had onions in it. She states she is having some shortness of breath swelling to the tongue tingling to the lips and itching to the face. She is alert oriented respirations regular nonlabored she is able to answer my questions. Clearly an allergic reaction medications but she will need a room. I have greeted and performed a rapid initial assessment of this patient. A comprehensive ED assessment and evaluation of the patient, analysis of test results and completion of medical decision making process will be conducted by an additional ED providers. TRAVEL OUTSIDE OF THE [place] IN LAST 30 DAYS: No - Related Data Allergies/Adverse Reactions: No Known Allergies Allergy (Verified 12/25/17 15:54) Past Medical History - Past Medical History Cardiac Medical History: Reports: Hx Hypertension Renal/ Medical History: Denies: Hx Peritoneal Dialysis Doctor's Discharge - Discharge Referrals: CHELE MATA CNM [Primary Care Provider] - Follow up as needed
[2019-05-25] MEDS ORDERED: EPINEPHRINE INJ/PF 1 MG/1 ML AMPULE IM ONE (11:21)
[2019-05-25] MEDS ORDERED: DEXAMETHASONE SOD PHOS INJ 10 MG/1 ML VIAL PO ONE (15:11)
[2019-05-25] MEDS ORDERED: DIPHENHYDRAMINE HCL 25 MG CAPSULE PO ONE (15:12)
[2019-05-25] MEDS ORDERED: DEXAMETHASONE 4 MG TABLET PO ONE (15:12)
--- NOTE | 2019-05-25 15:13 | ER Document Report ---
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 Patient apparently ate something with onions in it and swallowed it before she was able to spit it out. Patient initially came in complaining of throat swelling, to ngue swelling and some difficulty breathing. IV medications were ordered but unable to get them and in the meantime symptoms have improved. Patient states that she is still having tongue burning and throat burning. She had help felt lightheaded but that is gone. States that her symptoms are improving over the last 3 hours but still concerned about allergic reaction. Patient is also breast-feeding. Denies any hives, lip swelling, trouble breathing at this time. No history of asthma COPD or smoking. TRAVEL OUTSIDE OF THE [place] IN LAST 30 DAYS: No - HPI Onset: Just prior to arrival Onset/Duration: Sudden Severity: Moderate Identified cause: Yes Food exposure: Other - onion Similar symptoms previously: Yes - Related Data Allergies/Adverse Reactions: onion Allergy (Verified 05/25/19 11:18) Past Medical History - General Information source: Patient - Social History Smoking Status: Never Smoker Frequency of alcohol use: None Drug Abuse: None Family History: Reviewed & Not Pertinent Patient has suicidal ideation: No Patient has homicidal ideation: No - Past Medical History Cardiac Medical History: Reports: Hx Hypertension Renal/ Medical History: Denies: Hx Peritoneal Dialysis Review of Systems - Review of Systems -: Yes All other systems reviewed and negative Physical Exam - Vital signs Vitals: Temp Pulse BP Pulse Ox 98.5 F 84 165/90 H 99 05/25/19 11:13 05/25/19 11:13 05/25/19 11:13 05/25/19 11:13 Interpretation: Normal - General General appearance: Appears well, Alert - HEENT Head: Normocephalic, Atraumatic Eyes: Normal Pupils: PERRL Sinus: Normal Nasal: Normal Mouth/Lips: Normal. No: Angioedema Mucous membranes: Normal Pharynx: Erythema, Other - Patient with no swelling of oropharynx but some erythema.. No: Uvular edema, Potential airway comprom. - Respiratory Respiratory status: No respiratory distress Chest status: Nontender Breath sounds: Normal Chest palpation: Normal - Cardiovascular Rhythm: Regular Heart sounds: Normal auscultation Murmur: No - Abdominal Inspection: Normal Distension: No distension Bowel sounds: Normal Tenderness: Nontender Organomegaly: No organomegaly - Back Back: Normal, Nontender - Extremities General upper extremity: Normal inspection, Nontender, Normal color, Normal ROM, Normal temperature General lower extremity: Normal inspection, Nontender, Normal color, Normal ROM, Normal temperature, Normal weight bearing. No: Kun's sign - Neurological Neuro grossly intact: Yes Cognition: Normal Orientation: AAOx4 Zacarias Coma Scale Eye Opening: Spontaneous Zacarias Coma Scale Verbal: Oriented [place] Coma Scale Motor: Obeys Commands [place] Coma Scale Total: 15 Speech: Normal Motor strength normal: LUE, RUE, LLE, RLE Sensory: Normal - Psychological Associated symptoms: Normal affect, Normal mood - Skin Skin Temperature: Warm Skin Moisture: Dry Skin Color: Normal Location of irregularity: negative: Generalized, Face, Scalp, Ears, Neck, Abdomen, Chest, Back, Extremities, Other Course - Re-evaluation Re-evalutation: 05/25/19 15:22 Patient with improvement of symptoms although still having some itching of lips and throat. No airway compromise. No wheezing. No evidence for epinephrine at this time. Patient would prefer to do oral medications. We will give a dose of Decadron and Benadryl here. Patient is to take Benadryl, Claritin at home and will be given a prescription for an EpiPen. She is agreeable to this plan. Follow-up with PMD and avoid onions. Understands and agrees with plan. Return if any worsening or concerning symptoms. Of note, there are really no objective findings on exam at this time. Will treat symptomatically for acute allergic reaction. Vitals stable. No distress. No airway compromise. Stable for discharge. - Vital Signs Vital signs: Temp Pulse Resp BP Pulse Ox 98.5 F 84 165/90 H 99 05/25/19 11:13 05/25/19 11:13 05/25/19 11:13 05/25/19 11:13 Discharge - Discharge Clinical Impression: Allergic reaction Qualifiers: Encounter type: initial encounter Qualified Code(s): T78.40XA - Allergy, unspecified, initial encounter Condition: Stable Disposition: HOME, SELF-CARE Instructions: Acute Allergic Reaction ([facility]) Additional Instructions: Please take Benadryl at night and Claritin in the morning as needed for symptoms. Please follow-up with your PCP this week. Prescriptions: Epinephrine [Epipen 2-Maverick] 0.3 mg IM ONCE #1 ml Forms: Return to Work
[2019-05-25 15:33] VITALS: BP 137/83
== END 2019-05-25 15:40 | disposition home or self-care (01) ==
LOC: ER 11:09
DX: T78.40XA Allergy, unspecified, initial encounter (principal); I10 Essential (primary) hypertension; Y92.9 Unspecified place or not applicable
CPT/HCPCS: 99284; J8540